=== PATIENT | male | born 1930 | race Caucasian/White ===

== ENCOUNTER 2017-09-04 09:48 | Emergency (ER) | payer OTHER ==
--- NOTE | 2017-09-04 11:06 | ER ---
Nurse's Notes [facility] Name: Hernando Duarte Age: 86 yrs Sex: Male : 1930 Arrival Date: 09/04/2017 Time: 09:53 Bed 11 Private MD: Diagnosis: superficial laceration to right middle finger Presentation: 09/04 10:19 Presenting complaint: Patient states: sliced his 3rd digit on right hand with a grater iw that he was cleaning, couldn't get the bleeding to stop. Transition of care: patient was not received from another setting of care. Onset of symptoms was September 04, 2017. Risk Assessment: Do you want to hurt yourself or someone else? Patient reports no desire to harm self or others. Initial Sepsis Screen: Does the patient meet any 2 criteria? No. Patient's initial sepsis screen is negative. Does the patient have a suspected source of infection? No. Patient's initial sepsis screen is negative. Care prior to arrival: None. 10:19 Method Of Arrival: Ambulatory iw 10:19 Acuity: JULIO 4 iw Triage Assessment: 10:30 General: Appears in no apparent distress. comfortable, Behavior is calm, cooperative. iw Pain: Complains of pain in palmar aspect of distal phalanx of right middle finger. Historical: - Allergies: 10:22 NKA; iw - Home Meds: 10:22 Albuterol Inhl [Active]; iw - PSHx: 10:22 back; iw - Immunization history:: Adult Immunizations up to date. - Ebola Screening: : Patient negative for fever greater than or equal to 101.5 degrees Fahrenheit, and additional compatible Ebola Virus Disease symptoms Patient denies exposure to infectious person Patient denies travel to an Ebola-affected area in the 21 days before illness onset No symptoms or risks identified at this time. - Social history:: Smoking status: unknown. Screenin:00 Abuse screen: Denies threats or abuse. Denies injuries from another. Nutritional iw screening: No deficits noted. Tuberculosis screening: No symptoms or risk factors identified. Fall Risk None identified. Assessment: 11:00 General: Appears in no apparent distress. comfortable, Behavior is calm, cooperative. iw Neuro: Level of Consciousness is awake, alert, obeys commands, Moves all extremities. Full function. Derm: Skin is pink, warm \T\ dry. Musculoskeletal: Range of motion: intact in all extremities. Injury Description: Laceration sustained to palmar aspect of distal phalanx of right middle finger is superficial, 0.5 to 2.5 cm long, no active bleeding noted at this time. Vital Signs: 11:21 BP 168 / 74; Pulse 68; Resp 16; Temp 98.2; Pulse Ox 100% on R/A; iw ED Course: 09:53 Patient arrived in ED. rg4 10:19 Josette Diaz, RN is Primary Nurse. iw 10:20 Triage completed. iw 10:30 Arm band placed on. iw 10:30 Patient has correct armband on for positive identification. iw 10:31 Scot Templeton MD is Attending Physician. ps1 11:20 No provider procedures requiring assistance completed. Patient did not have IV access iw during this emergency room visit. Administered Medications: No medications were administered Outcome: 11:05 Discharge ordered by . ps1 11:20 Discharged to home ambulatory. iw 11:20 Condition: good 11:20 Discharge instructions given to patient, Instructed on discharge instructions, follow up and referral plans. Demonstrated understanding of instructions, follow-up care. 11:21 Patient left the ED. iw Signatures: Josette Diaz, Savita Fountain RN rg4 Scot Templeton MD MD ps1
--- NOTE | 2017-09-04 11:06 | EDPHYS ---
Physician Documentation [facility] Name: Hernando Duarte Age: 86 yrs Sex: Male : 1930 Arrival Date: 09/04/2017 Time: 09:53 Bed 11 Private MD: ED Physician Scot Templeton HPI: 09/04 11:01 This 86 yrs old Male presents to ER via Ambulatory with complaints of FINGER ps1 LACERATION. 11:01 right hand middle finger laceration while using a mandolin. Rishit states that he had ps1 a bad cut before in the past and couldn't get it to stop so he wanted to get it checked out. Laceration is 1cm and superficial. Dressed in a bandaid. Dried blood. Hemostasis achieved. No blood thinners. Tetanus UTD. Pain controlled rated as mild. . Historical: - Allergies: 10:22 NKA; iw - Home Meds: 10:22 Albuterol Inhl [Active]; iw - PSHx: 10:22 back; iw - Immunization history:: Adult Immunizations up to date. - Ebola Screening: : Patient negative for fever greater than or equal to 101.5 degrees Fahrenheit, and additional compatible Ebola Virus Disease symptoms Patient denies exposure to infectious person Patient denies travel to an Ebola-affected area in the 21 days before illness onset No symptoms or risks identified at this time. - Social history:: Smoking status: unknown. ROS: 11:01 Constitutional: Negative for fever, chills, and weight loss, Eyes: Negative for injury, ps1 pain, redness, and discharge, ENT: Negative for injury, pain, and discharge, Cardiovascular: Negative for chest pain, palpitations, and edema, Respiratory: Negative for shortness of breath, cough, wheezing, and pleuritic chest pain, Abdomen/GI: Negative for abdominal pain, nausea, vomiting, diarrhea, and constipation. 11:01 MS/extremity: Positive for laceration. Exam: 11:01 Constitutional: This is a well developed, well nourished patient who is awake, alert, ps1 and in no acute distress. Head/Face: Normocephalic, atraumatic. Eyes: Pupils equal round and reactive to light, extra-ocular motions intact. Lids and lashes normal. Conjunctiva and sclera are non-icteric and not injected. Chest/axilla: Normal chest wall appearance and motion. Nontender with no deformity. No lesions are appreciated. Cardiovascular: Regular rate and rhythm. No gallops, murmurs, or rubs. Normal PMI, no JVD. No pulse deficits. Respiratory: Lungs have equal breath sounds bilaterally, clear to auscultation and percussion. No rales, rhonchi or wheezes noted. No increased work of breathing, no retractions or nasal flaring. 11:01 Musculoskeletal/extremity: Extremities: grossly normal except: noted in the palmar aspect of distal phalanx of right middle finger: laceration, 1cm. superficial. Hemostasis achieved. No need for closure. . Vital Signs: 11:21 BP 168 / 74; Pulse 68; Resp 16; Temp 98.2; Pulse Ox 100% on R/A; iw MDM: 11:05 Patient medically screened. ps1 11:06 Data reviewed: vital signs, nurses notes, and as a result, I will discharge patient, ps1 use neosporin. . Administered Medications: No medications were administered Disposition: 09/04/17 11:05 Discharged to Home. Impression: superficial laceration to right middle finger. - Condition is Stable. - Discharge Instructions: Laceration Care, Adult. - Medication Reconciliation Form, Thank You Letter, Antibiotic Education, Prescription Opioid Use form. - Follow up: Private Physician; When: As needed. Follow up: Emergency Department; When: As needed; Reason: Worsening of condition. - Problem is new. - Symptoms have improved. Signatures: Josette Diaz RN RN iw Scot Templeton MD MD ps1 Corrections: (The following items were deleted from the chart) 11:21 11:05 09/04/2017 11:05 Discharged to Home. Impression: superficial laceration to right iw middle finger. Condition is Stable. Forms are Medication Reconciliation Form, Thank You Letter, Antibiotic Education, Prescription Opioid Use. Follow up: Private Physician; When: As needed. Follow up: Emergency Department; When: As needed; Reason: Worsening of condition. Problem is new. Symptoms have improved. ps1
== END 2017-09-04 11:21 | disposition home or self-care (01) ==
LOC: ER 09:48
DX: S61.212A Laceration without foreign body of right middle finger without damage to nail, initial encounter (principal); W45.8XXA Other foreign body or object entering through skin, initial encounter; Y93.9 Activity, unspecified; Y92.9 Unspecified place or not applicable
CPT/HCPCS: 99281